=== PATIENT | female | born 1955 | race Caucasian/White ===

== ENCOUNTER → 2016-10-05 | Outpatient (CLI) | payer MEDICAID | LOC: FIMAGING 14:03 | PROVIDERS: ATTEND Family Medicine | DX: Z13.820 Encounter for screening for osteoporosis (principal); M85.80 Other specified disorders of bone density and structure, unspecified site; Z78.0 Asymptomatic menopausal state; Z82.62 Family history of osteoporosis ==

== ENCOUNTER 2016-10-07 14:59 | Emergency (ER) | payer MEDICAID ==
[2016-10-07 15:11] VITALS: TEMP 97.5
--- NOTE | 2016-10-07 16:45 | EDPHY ---
H & P Stated Complaint: chest cold, Ear pain, nasal drip. Time Seen by Provider: 10/07/16 16:37 HPI/ROS: CHIEF COMPLAINT: Bilateral ear pain HISTORY OF PRESENT ILLNESS: The patient is a 61-year-old female who comes to the emergency department complaining of cough and congestion for 4 weeks now complaining of bilateral ear pain after strong coughing. She has not had a fever. She has not had a productive cough. She denies headache or neck pain. She denies chest pain or shortness of breath. REVIEW OF SYSTEMS: Constitutional: denies: chills, fever, recent illness, recent injury EENTM: See HPI Respiratory: See HPI Cardiac: denies: chest pain, irregular heart rate, lightheadedness, palpitations Gastrointestinal/Abdominal: denies: abdominal pain, diarrhea, nausea, vomiting, blood streaked stools Genitourinary: denies: dysuria, frequency, hematuria, pain Musculoskeletal: denies: joint pain, muscle pain Skin: denies: lesions, rash, jaundice, bruising Neurological: denies: headache, numbness, paresthesia, tingling, dizziness, weakness Hematologic/Lymphatic: denies: blood clots, easy bleeding, easy bruising Immunologic/allergic: denies: HIV/AIDS, transplant EXAM: GENERAL: Well-appearing, well-nourished and in no acute distress. HEAD: Atraumatic, normocephalic. EYES: Pupils equal round and reactive to light, extraocular movements intact, sclera anicteric, conjunctiva are normal. ENT: TMs with erythema and purulence on the right side, bulging, nares patent, oropharynx clear without exudates. Moist mucous membranes. NECK: Normal range of motion, supple without lymphadenopathy or JVD. LUNGS: Breath sounds clear to auscultation bilaterally and equal. No wheezes rales or rhonchi. HEART: Regular rate and rhythm without murmurs, rubs or gallops. ABDOMEN: Soft, nontender, normoactive bowel sounds. No guarding, no rebound. No masses appreciated. BACK: No CVA tenderness, no spinal tenderness, step-offs or deformities EXTREMITIES: Normal range of motion, no pitting or edema. No clubbing or cyanosis. NEUROLOGICAL: Cranial nerves II through XII grossly intact. Normal speech, normal gait. 5/5 strength, normal movement in all extremities, normal sensation PSYCH: Normal mood, normal affect. SKIN: Warm, dry, normal turgor, no visible rashes or lesions. Source: Patient Exam Limitations: No limitations - Personal History Current Tetanus/Diphtheria Vaccine: Yes Current Tetanus Diphtheria and Acellular Pertussis (TDAP): Yes - Medical/Surgical History Hx Asthma: No Hx Chronic Respiratory Disease: No Hx Diabetes: No Hx Cardiac Disease: No Hx Renal Disease: No Hx Cirrhosis: No Hx Alcoholism: No Hx HIV/AIDS: No Hx Splenectomy or Spleen Trauma: No Other PMH: chronic neck pain. HTN - Family History Significant Family History: No pertinent family hx - Social History Smoking Status: Former smoker Alcohol Use: Sober Drug Use: None Constitutional: Initial Vital Signs Temperature (C) 36.4 C 10/07/16 15:08 Heart Rate 65 10/07/16 15:08 Respiratory Rate 18 10/07/16 15:08 Blood Pressure 133/91 H 10/07/16 15:08 O2 Sat (%) 95 10/07/16 15:08 O2 Delivery Mode Room Air Allergies/Adverse Reactions: codeine Allergy (Mild, Verified 12/10/15 13:16) itch Home Medications: Medication Instructions Recorded Aspirin [Aspirin 81mg (*)] 81 mg PO DAILY 12/10/15 Ibuprofen [Motrin (*)] 800 mg PO 12/10/15 Potassium Cl [Klor-Con 20 meq (*)] 20 meq PO DAILY #7 tab 12/10/15 SIMVASTATIN 10 mg PO 12/10/15 Triamterene [Dyrenium] 100 mg PO BID 12/10/15 Azithromycin 250 mg PO DAILY #4 tablet 10/07/16 Medical Decision Making ED Course/Re-evaluation: Patient has otitis media on examination. Her lung sounds are clear. I will start her on antibiotics and have encouraged ibuprofen. She understands and agrees with this plan. She declines further workup or testing at this time. Differential Diagnosis: Partial list of the Differential diagnosis considered include but were not limited to; otitis media, upper respiratory tract infection, pneumonia, bronchitis and although unlikely based on the history and physical exam, I also considered perforation, meningitis, sepsis. I discussed these differential diagnoses and the plan with the patient as well as the usual and expected course. The patient understands that the diagnosis is provisional and that in medicine we are not always correct and that further workup is often warranted. Usual and customary warnings were given. All of the patient's questions were answered. The patient was instructed to return to the emergency department should the symptoms at all worsen or return, otherwise to followup with the physician as we discussed. - Data Points Medications Given: Discontinued Medications Azithromycin (Zithromax) 500 mg PO EDNOW ONE PRN Reason: Protocol Stop: 10/07/16 16:48 Last Admin: 10/07/16 17:04 Dose: 500 mg Departure - Departure Disposition: Home, Routine, Self-Care Clinical Impression: Otitis media Qualifiers: Otitis media type: suppurative Chronicity: acute Laterality: right Recurrence: not specified as recurrent Spontaneous tympanic membrane rupture: without spontaneous rupture Qualified Code(s): H66.001 - Acute suppurative otitis media without spontaneous rupture of ear drum, right ear Condition: Fair Instructions: Otitis Media (ED) Referrals: Saba Cai MD [Primary Care Provider] - As per Instructions Prescriptions: Azithromycin 250 mg PO DAILY #4 tablet
[2016-10-07] MEDS ORDERED: AZITHROMYCIN 250 MG TAB PO ONE (16:47)
[2016-10-07 17:11] VITALS: BP 153/97; PULSE 63; RESP 16; O2SAT 96
== END 2016-10-07 17:11 | disposition home or self-care (01) ==
DX: H66.001 Acute suppurative otitis media without spontaneous rupture of ear drum, right ear (principal); I10 Essential (primary) hypertension; Z79.82 Long term (current) use of aspirin; Z87.891 Personal history of nicotine dependence

== ENCOUNTER 2016-10-12 15:48 | Emergency (ER) | payer MEDICAID ==
[2016-10-12 15:52] VITALS: BP 119/81; PULSE 84; RESP 16; TEMP 98.2; O2SAT 95
[2016-10-12] MEDS ORDERED: OXYMETAZOLINE 30 ML NASAL SPRAY EACHNARE ONE (16:46)
--- NOTE | 2016-10-12 16:50 | EDPHY ---
H & P Stated Complaint: ear pain Time Seen by Provider: 10/12/16 16:38 HPI/ROS: CHIEF COMPLAINT: Ear pain HISTORY OF PRESENT ILLNESS: The patient is a 61-year-old female who comes to the emergency department complaining of bilateral ear pain. She states that it is mild and that it sounds like she is underwater. She states that her hearing is muffled. I saw her here a week ago and diagnosed with ear infection and started on Z-Lew. She no longer has the cough or sinus congestion but continues to have fullness in her ears. No headache. No neck pain. No dizziness. REVIEW OF SYSTEMS: Constitutional: denies: chills, fever, recent illness, recent injury EENTM: See HPI Respiratory: denies: cough, shortness of breath Cardiac: denies: chest pain, irregular heart rate, lightheadedness, palpitations Gastrointestinal/Abdominal: denies: abdominal pain, diarrhea, nausea, vomiting, blood streaked stools Genitourinary: denies: dysuria, frequency, hematuria, pain Musculoskeletal: denies: joint pain, muscle pain Skin: denies: lesions, rash, jaundice, bruising Neurological: denies: headache, numbness, paresthesia, tingling, dizziness, weakness Hematologic/Lymphatic: denies: blood clots, easy bleeding, easy bruising Immunologic/allergic: denies: HIV/AIDS, transplant EXAM: GENERAL: Well-appearing, well-nourished and in no acute distress. HEAD: Atraumatic, normocephalic. EYES: Pupils equal round and reactive to light, extraocular movements intact, sclera anicteric, conjunctiva are normal. ENT: TMs with effusions bilaterally, no erythema , nares patent, oropharynx clear without exudates. Moist mucous membranes. NECK: Normal range of motion, supple without lymphadenopathy or JVD. LUNGS: Breath sounds clear to auscultation bilaterally and equal. No wheezes rales or rhonchi. HEART: Regular rate and rhythm without murmurs, rubs or gallops. ABDOMEN: Soft, nontender, normoactive bowel sounds. No guarding, no rebound. No masses appreciated. BACK: No CVA tenderness, no spinal tenderness, step-offs or deformities EXTREMITIES: Normal range of motion, no pitting or edema. No clubbing or cyanosis. NEUROLOGICAL: Cranial nerves II through XII grossly intact. Normal speech, normal gait. 5/5 strength, normal movement in all extremities, normal sensation PSYCH: Normal mood, normal affect. SKIN: Warm, dry, normal turgor, no visible rashes or lesions. Source: Patient Exam Limitations: No limitations - Personal History Current Tetanus/Diphtheria Vaccine: Yes Current Tetanus Diphtheria and Acellular Pertussis (TDAP): Yes - Medical/Surgical History Hx Asthma: No Hx Chronic Respiratory Disease: No Hx Diabetes: No Hx Cardiac Disease: No Hx Renal Disease: No Hx Cirrhosis: No Hx Alcoholism: No Hx HIV/AIDS: No Hx Splenectomy or Spleen Trauma: No Other PMH: chronic neck pain. HTN - Family History Significant Family History: No pertinent family hx - Social History Smoking Status: Former smoker Alcohol Use: Sober Drug Use: None Constitutional: Initial Vital Signs Temperature (C) 36.8 C 10/12/16 15:50 Heart Rate 84 10/12/16 15:50 Respiratory Rate 16 10/12/16 15:50 Blood Pressure 119/81 H 10/12/16 15:50 O2 Sat (%) 95 10/12/16 15:50 O2 Delivery Mode Room Air Allergies/Adverse Reactions: codeine Allergy (Mild, Verified 12/10/15 13:16) itch Home Medications: Medication Instructions Recorded Aspirin [Aspirin 81mg (*)] 81 mg PO DAILY 12/10/15 Ibuprofen [Motrin (*)] 800 mg PO 12/10/15 Potassium Cl [Klor-Con 20 meq (*)] 20 meq PO DAILY #7 tab 12/10/15 SIMVASTATIN 10 mg PO 12/10/15 Triamterene [Dyrenium] 100 mg PO BID 12/10/15 Azithromycin 250 mg PO DAILY #4 tablet 10/07/16 Medical Decision Making ED Course/Re-evaluation: Patient has effusions behind tympanic membranes. They do not appear infected. She has no other significant symptoms. I will start her on Afrin and have her follow up with ENT tomorrow for possible drainage. She understands and agrees with this plan. Differential Diagnosis: Partial list of the Differential diagnosis considered include but were not limited to; tympanic membrane effusions, otitis media, otitis externa, sinusitis and although unlikely based on the history and physical exam, I also considered meningitis, trauma tumor. I discussed these differential diagnoses and the plan with the patient as well as the usual and expected course. The patient understands that the diagnosis is provisional and that in medicine we are not always correct and that further workup is often warranted. Usual and customary warnings were given. All of the patient's questions were answered. The patient was instructed to return to the emergency department should the symptoms at all worsen or return, otherwise to followup with the physician as we discussed. - Data Points Medications Given: Discontinued Medications Oxymetazoline HCl (Afrin Nasal [place]) 2 sprays EACHNARE EDNOW ONE Stop: 10/12/16 16:47 Last Admin: 10/12/16 17:07 Dose: 2 spr Departure - Departure Disposition: Home, Routine, Self-Care Clinical Impression: Acute middle ear effusion Qualifiers: Laterality: bilateral Qualified Code(s): H65.193 - Other acute nonsuppurative otitis media, bilateral Condition: Fair Instructions: Serous Otitis Media (ED) Additional Instructions: Use the Afrin every 6 hours as discussed and follow up with ENT tomorrow for evaluation and consideration of drainage Referrals: Saba Cai MD [Primary Care Provider] - As per Instructions Orquidea Albert MD [Medical Doctor] - As per Instructions
== END 2016-10-12 17:07 | disposition home or self-care (01) ==
DX: H65.193 Other acute nonsuppurative otitis media, bilateral (principal); I10 Essential (primary) hypertension; Z87.891 Personal history of nicotine dependence